=== PATIENT | female | born 1960 | race Caucasian/White ===

== ENCOUNTER 2020-12-22 20:07 | Emergency (ER) | payer OTHER, SELFPAY ==
[2020-12-22 20:08] VITALS: BP 132/82; PULSE 78; RESP 18; TEMP 35.9; O2SAT 97; BMI 25.0
--- NOTE | 2020-12-22 20:49 | EX.ED.DYSGE1 ---
HPI History of Present Illness Chief Complaint: Cellulitis Informant: patient Narrative Narrative: 60-year-old female in town visiting her mom. She is from [place] and has been here the last 6 weeks working with her oncologist. She states that everything is well with her cancer and she does not need to do anything for another year. 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 She states that she has noticed a red tender area just inferior and medial to her nipple on the left breast. She denies any drainage from the breast. She denies any fevers. [facility] Medical History (Updated 12/22/20 @ 20:[address] Kannan Elmore, ) Cancer of appendix Home Medications NK 12/22/20 [History Last Taken Unknown] cephalexin 500 mg PO Q6 #40 capsule 12/22/20 [Rx Last Taken Unknown] Allergy/AdvReac Type Severity Reaction Status Date / Time Penicillins [PCN] Allergy Pain in Verified 12/22/20 20:11 joints Surgical History History of splenectomy Social History (Updated 12/22/20 @ 20:[address] Kannan Elmore, ) Smoking Status: Never smoker substance use type: does not use ROS ROS ED Constitutional Constitutional ED: Denies chills or weight loss Eyes Eyes: Denies change in vision or diplopia ENT ENT ED: Denies ear pain, rhinorrhea or sore throat Cardiovascular Cardiovascular: Denies chest pain, orthopnea, palpitations or racing heartbeat Respiratory/Chest Respiratory/Chest: Denies cough, dyspnea or orthopnea Gastrointestinal Gastrointestinal: Denies abdominal pain, diarrhea, nausea or vomiting Genitourinary Genitourinary ED: Denies dysuria, hematuria or urinary frequency Musculoskeletal Musculoskeletal: Denies arthralgias or myalgias Integumentary Reports rash; Denies abscess Neurologic Neurologic: Denies headache(s) or weakness Psychiatric Psychiatric: Denies anxiety, depression, suicidal ideation or suicidal thoughts Endocrine Endocrinology: Denies polydipsia, polyphagia or polyuria Allergic/Immunologic Allergic/Immunologic ED: Denies mouth swelling, tongue swelling or urticaria EXAM Physical Exam Const Vital Signs: 12/22/20 20:08 Temperature 96.6 F L Temperature Source Temporal Pulse Rate 78 Respiratory Rate 18 Blood Pressure 132/82 H Blood Pressure Mean 98 Pulse Ox 97 Oxygen Delivery Method Room Air Positive well nourished and well developed General Appearance ED: well developed HEENT Reports normocephalic, head/scalp atraumatic and moist mucous membranes Eyes PERRL and EOMs intact bilaterally Neck no lymphadenopathy, supple and no JVD Chest Wall Chest Narrative: There is a looney sized area of erythema just inferior and medial to the left nipple. It is tender. There is no raised area. No drainage from the nipple. No masses felt. Resp normal respiratory effort and clear to auscultation bilaterally Cardio regular rate, regular rhythm and no murmurs GI normal to inspection, nondistended, normoactive bowel sounds and non-tender Palpation: soft Back/Spine no CVA tenderness and normal ROM Extremity normal to inspection General Extremety ED: Negative for edema General Extremity: Negative for edema Neuro oriented x3 and CN's II-XII intact bilaterally Sensorium / Orientation: alert Motor Exam: strength 5/5 throughout Psych mental status grossly normal Mood & Affect: Negative for depressed or tearful Skin no rashes or lesions noted and no wounds MDM MDM MDM Narrative Medical decision making narrative: This appears to be a localized infection. I will place her on Keflex and have any warm compresses. Return if worsening or concerns Discharge Plan Triage Chief Complaint: Cellulitis ED Provider: Kannan Elmore Dx/Rx/DC Orders Clinical Impression: Cellulitis Instructions: Cellulitis Prescriptions: New cephalexin [cephalexin] 500 MG capsule 500 mg PO Q6 Qty: 40 RF: 0 No Action NK RF: 0 Primary Care Provider: NOT,DEFINED Referrals: NOT,DEFINED [Primary Care Provider] - Disposition Disposition: Home, self care
[2020-12-22 20:50] VITALS: RESP 18
== END 2020-12-22 21:36 | disposition home or self-care (01) ==
LOC: ED 21:09
PROVIDERS: Emergency Provider Emergency Medicine
DX: N61.0 Mastitis without abscess (principal); Z85.89 Personal history of malignant neoplasm of other organs and systems; Z90.81 Acquired absence of spleen
CPT/HCPCS: 99283